=== PATIENT | male | born 1975 | race Caucasian/White ===

== ENCOUNTER → 2016-10-23 | Outpatient (CLI) | payer OTHER ==
--- NOTE | 2016-10-23 16:23 | KCIC ---
Examination: Ultrasound soft tissue neck under the chin COMPARISON: None available HISTORY: History of lump under chin, tender submental lymphadenopathy COMPARISON: None available FINDINGS: There is a complex hypoechoic region identified in the soft tissue of the chin measuring 0.8 x 0 0.6 to 1.4 cm. IMPRESSION: 1. A 1.4 cm complex hypoechoic focus identified in the soft tissue of the chin. Differential includes abnormal lymph node or complex fluid collection such as a small abscess. CT soft tissue neck with IV contrast is recommended for further evaluation. Electronically signed by: Chavo Ridley MD (10/23/2016 4:20 PM) [id number]
== END | disposition home or self-care (01) ==
LOC: KCIC US 13:59
PROVIDERS: ATTEND Physician Assistant
DX: R59.9 Enlarged lymph nodes, unspecified (principal)
CPT/HCPCS: 76536

== ENCOUNTER 2018-01-28 19:06 | Emergency (ER) | payer OTHER ==
[~2018-01-28] VITALS: Ht 185.4 cm; Wt 89.8 kg
[2018-01-28] MEDS ORDERED: MORPHINE SULFATE 4 MG/ML VIAL. IV ONE (19:30)
[2018-01-28] MEDS ORDERED: IV NORMAL SALINE 1000ML BAG 1,000 ML IV ONE (19:30)
--- NOTE | 2018-01-28 19:38 | PHYS DOC ---
Past Medical History Past Medical History: High Cholesterol Additional Past Medical Histor: aortic stenois Additional Past Surgical Histo: VALVE REPLACEMENT Alcohol Use: Occasionally Drug Use: None Adult General Chief Complaint Chief Complaint: BLOOD IN URINE HPI HPI Patient is a 42 year old male who presents to the emergency Department today with complaints of pain in his right testicle since 1300 this afternoon. He also reports blood in his urine. Patient denies any fever, back pain, abdominal pain, nausea, vomiting, dizziness, increased urinary frequency, or dysuria. He states he was lifting heavy items at work when the pain developed, he denies any known injury. He denies any swelling or bulging in his groin. Patient denies any loss of bowel or bladder control. States that he went to urgent care and was told to go the emergency room for more detailed workup. Patient reports havign his aortic heart valve replaced in August 2017 and is taking Coumadin. His INR today is 1.8 per paperwork that was sent from urgent care, pt stated he had missed 2 doses of the medication last week. Review of Systems Review of Systems Constitutional: Denies fever or chills [] GI: Denies abdominal pain, nausea, vomiting, or diarrhea [] : Denies loss of bowel/bladder control, dysuria or urinary frequency, reports hematuria and R testicle pain since 1300 Musculoskeletal: Denies back pain or joint pain [] Integument: Denies rash or skin lesions [] Neurologic: Denies headache, focal weakness or sensory changes [] All other systems were reviewed and found to be within normal limits, except as documented in this note. Current Medications Current Medications Current Medications Medications (Trade) Dose Ordered Sig/Lida Start Time Stop Time Status Last Admin Dose Admin Ceftriaxone Sodium 50 ml @ 100 mls/hr 1X ONCE 01/28/18 20:15 01/28/18 20:44 DC 01/28/18 20:18 100 MLS/HR Morphine Sulfate (Morphine Sulfate) 4 mg 1X ONCE 01/28/18 19:30 01/28/18 19:31 DC 01/28/18 19:44 4 MG Sodium Chloride 1,000 ml @ 1,000 mls/hr 1X ONCE 01/28/18 19:30 01/28/18 20:29 DC 01/28/18 19:30 1,000 MLS/HR Allergies Allergies Allergies Coded Allergies Type Severity Reaction Last Updated Verified No Known Drug Allergies 01/28/18 No Physical Exam Physical Exam Constitutional: Well developed, well nourished, no acute distress, non-toxic appearance. [] HENT: Normocephalic, atraumatic, bilateral external ears normal, nose normal. [] Eyes: conjunctiva normal, no discharge. [] Neck: Normal range of motion, no tenderness, supple, no stridor. [] Cardiovascular:Heart rate regular rhythm, valve clicking present. Lungs & Thorax: Bilateral breath sounds clear to auscultation [] Abdomen: Bowel sounds normal, soft, no tenderness, no masses, no pulsatile masses. [] : negative Phren's sign, R testicle tenderness to palpation, no scrotal edema or erythema noted, no high riding testicle when upright or supine. Skin: Warm, dry, no erythema, no rash. [] Neurologic: Alert and oriented X 3, normal motor function, normal sensory function, no focal deficits noted. [] Psychologic: Affect normal, judgement normal, mood normal. [] Current Patient Data Vital Signs Vital Signs Date Time Temp Pulse Resp B/P (MAP) Pulse Ox O2 Delivery O2 Flow Rate FiO2 01/28/18 23:00 88 18 128/69 (88) 98 Room Air 01/28/18 19:18 97.9 97.9 Lab Values Laboratory Tests Test 01/28/18 19:15 01/28/18 19:40 Urine Collection Type Unknown Urine Color Red Urine Clarity Turbid Urine pH 6.0 Urine Specific [place] 1.025 Urine Protein 100 mg/dL (NEG-TRACE) Urine Glucose (UA) Negative mg/dL (NEG) Urine Ketones (Stick) Trace mg/dL (NEG) Urine Blood Large (NEG) Urine Nitrite Positive (NEG) Urine Bilirubin Small (NEG) Urine Urobilinogen Dipstick 1.0 mg/dL (0.2 mg/dL) Urine Leukocyte Esterase Large (NEG) Urine RBC Tntc /HPF (0-2) Urine WBC >40 /HPF (0-4) Urine Squamous Epithelial Cells Few /LPF Urine Bacteria Moderate /HPF (0-FEW) White Blood Count 14.7 x10^3/uL (4.0-11.0) H Red Blood Count 4.18 x10^6/uL (4.30-5.70) L Hemoglobin 13.1 g/dL (13.0-17.5) Hematocrit 38.2 % (39.0-53.0) L Mean Corpuscular Volume 91 fL (79-100) Mean Corpuscular Hemoglobin 31 pg (25-35) Mean Corpuscular Hemoglobin Concent 34 g/dL (31-37) Red Cell Distribution Width 15.3 % (11.5-14.5) H Platelet Count 241 x10^3/uL (140-400) Neutrophils (%) (Auto) 82 % (31-73) H Lymphocytes (%) (Auto) 9 % (24-48) L Monocytes (%) (Auto) 8 % (0-9) Eosinophils (%) (Auto) 1 % (0-3) Basophils (%) (Auto) 1 % (0-3) Neutrophils # (Auto) 12.1 x10^3uL (1.8-7.7) H Lymphocytes # (Auto) 1.3 x10^3/uL (1.0-4.8) Monocytes # (Auto) 1.2 x10^3/uL (0.0-1.1) H Eosinophils # (Auto) 0.1 x10^3/uL (0.0-0.7) Basophils # (Auto) 0.1 x10^3/uL (0.0-0.2) Sodium Level 138 mmol/L (136-145) Potassium Level 3.8 mmol/L (3.5-5.1) Chloride Level 103 mmol/L (98-107) Carbon Dioxide Level 24 mmol/L (21-32) Anion Gap 11 (6-14) Blood Urea Nitrogen 19 mg/dL (8-26) Creatinine 1.1 mg/dL (0.7-1.3) Estimated GFR (Cockcroft-Gault) 73.1 BUN/Creatinine Ratio 17 (6-20) Glucose Level 107 mg/dL (70-99) H Calcium Level 9.1 mg/dL (8.5-10.1) Total Bilirubin 0.5 mg/dL (0.2-1.0) Aspartate Amino Transferase (AST) 32 U/L (15-37) Alanine Aminotransferase (ALT) 41 U/L (16-63) Alkaline Phosphatase 98 U/L (46-116) Total Protein 8.3 g/dL (6.4-8.2) H Albumin 4.3 g/dL (3.4-5.0) Albumin/Globulin Ratio 1.1 (1.0-1.7) Laboratory Tests 01/28/18 19:40 Laboratory Tests 01/28/18 19:40 EKG EKG [] Radiology/Procedures Radiology/Procedures REASON: R testicle pain since 1300 no injury PROCEDURE: TESTICULAR/SCROTUM EXAM: Scrotal sonogram with Doppler. HISTORY: Right testicular pain. Gross hematuria. COMPARISON: None. FINDINGS: Grayscale and Doppler analysis of the scrotum and contents was performed. The right testicle measures 4.2 x 3.4 x 2.6 cm. Microlithiasis is noted. There are no suspicious parenchymal lesions. A cyst in the epididymal head measures 5 x 4 mm and appears benign. Doppler flow appears normal. There is no hydrocele. The left testicle measures 4.7 x 3.2 x 2.2 cm. Microlithiasis is noted. There are no suspicious parenchymal lesions. Testicular flow appears normal. The left epididymis is mildly heterogeneous and hyperemic. IMPRESSION: 1. No cause for right-sided pain is identified. 2. Mild heterogeneity and hyperemia of the left epididymis suggests mild epididymitis. This may be chronic. Correlate clinically. 3. Testicular microlithiasis. Some sources suggest sporadic follow-up. Urologic consultation could be obtained if there is persistent concern.[] PROCEDURE: CT ABDOMEN PELVIS WO CONTRAST EXAM: CT ABDOMEN/PELVIS WITHOUT CONTRAST. HISTORY: Right groin pain, hematuria. TECHNIQUE: Computed tomography of the abdomen and pelvis was performed without intravenous contrast. COMPARISON: None. FINDINGS: Lung windows through the visualized portions of the bases reveal changes of median sternotomy and aortic valve replacement. There is mild dependent atelectasis. Bone windows reveal no suspicious lesions. There are multiple bone islands bilaterally about the hips. There is an 8 mm cyst in the right hepatic lobe. The gallbladder, spleen, pancreas, adrenal glands and kidneys are unremarkable. There are no renal or ureteral calculi. There are no pathologically enlarged lymph nodes. The left colon is decompressed, but there appears to be some wall thickening along the sigmoid portion. The appendix is not inflamed. There is no small bowel obstruction. IMPRESSION: 1. No renal or ureteral calculi. 2. The sigmoid colon is decompressed, but there appears to be mild wall thickening. Correlate for mild distal colitis. Course & Med Decision Making Course & Med Decision Making Pertinent Labs and Imaging studies reviewed. (See chart for details) DX: UTI with hematuria DDx: testicular torsion, kidney stone, pyelonephritis Pt was given 1 GM rocephin in the ER IV, 1 L of NS and 4 mg of morhine IV. He reported pain relief after pain mediation. Pt was encouraged to increase clear fluids. May take tylenol as needed for fever/pain. Follow up with urology, call in the morning for an appointment. Dr. Bledsoe's information provided. Prescription for levaquin written. Return to the ER if pain increases or symptoms worsen. PT verbalized an understanding of d/c instructions and was in agreement with POC. [] Dragon Disclaimer Dragon Disclaimer This electronic medical record was generated, in whole or in part, using a voice recognition dictation system. Departure Departure Impression: Primary Impression: UTI (urinary tract infection) Disposition: 01 HOME, SELF-CARE Condition: STABLE Referrals: NON,STAFF (PCP) Patient Instructions: Urinary Tract Infection, [id number] Additional Instructions: Fill the prescription and use as directed. Increase clear fluids. Follow up with Dr. Bledsoe, call in the morning for an appointment. Return to the ER if your symptoms worsen or pain returns. Scripts Levofloxacin (LEVAQUIN) 750 Mg Tablet 1 TAB PO DAILY, #7 TAB 0 Refills Prov: DANI MENDES APRN 01/28/18 Attending Co-Sign Attending Co-Sign The patient was not seen by me. The [facility] chart was reviewed. I agree with the plan of care. Problem Qualifiers Primary Impression: UTI (urinary tract infection) Urinary tract infection type: site unspecified Hematuria presence: with hematuria Qualified Codes: N39.0 - Urinary tract infection, site not specified ; R31.9 - Hematuria, unspecified DANI MENDES APRN Jan 28, 2018 19:38 RAO CASTRO MD Jan 31, 2018 04:47
[2018-01-28 19:57] LABS: BASO # 0.1 x10^3/uL (0.0-0.2); BASO % 1 % (0-3); EOS # 0.1 x10^3/uL (0.0-0.7); EOS % 1 % (0-3); HEMATOCRIT 38.2 % (39.0-53.0); HEMOGLOBIN 13.1 g/dL (13.0-17.5); LYMPH # 1.3 x10^3/uL (1.0-4.8); LYMPH % 9 % (24-48); MEAN CORPUSCULAR HEMOGLOBIN 31 pg (25-35); MEAN CORPUSCULAR HGB CONC 34 g/dL (31-37); MEAN CORPUSCULAR VOLUME 91 fL (79-100); MONO # 1.2 x10^3/uL (0.0-1.1); MONO % 8 % (0-9); NEUT # 12.1 x10^3uL (1.8-7.7); NEUT % 82 % (31-73); PLATELET COUNT 241 x10^3/uL (140-400); RED BLOOD COUNT 4.18 x10^6/uL (4.30-5.70); RED CELL DISTRIBUTION WIDTH 15.3 % (11.5-14.5); WHITE BLOOD COUNT 14.7 x10^3/uL (4.0-11.0)
[2018-01-28 19:58] LABS: BILIRUBIN,URINE SMALL (NEG); CLARITY,URINE TURBID; COLOR,URINE RED; NITRITE,URINE POSITIVE (NEG); PROTEIN,URINE 100 mg/dL (NEG-TRACE)
[2018-01-28 20:02] LABS: CALCIUM 9.1 mg/dL (8.5-10.1); CREATININE 1.1 mg/dL (0.7-1.3); GFR 73.1; POTASSIUM 3.8 mmol/L (3.5-5.1)
[2018-01-28 20:06] LABS: BACTERIA,URINE MODERATE /HPF (0-FEW); RBC,URINE TNTC /HPF (0-2); SQUAMOUS EPITHELIAL CELL,UR FEW /LPF; WBC,URINE >40 /HPF (0-4)
[2018-01-28 20:08] LABS: ALBUMIN 4.3 g/dL (3.4-5.0); ALBUMIN/GLOBULIN RATIO 1.1 (1.0-1.7); TOTAL BILIRUBIN 0.5 mg/dL (0.2-1.0); TOTAL PROTEIN 8.3 g/dL (6.4-8.2)
--- NOTE | 2018-01-28 21:03 | RAD ---
EXAM: Scrotal sonogram with Doppler. HISTORY: Right testicular pain. Gross hematuria. COMPARISON: None. FINDINGS: Grayscale and Doppler analysis of the scrotum and contents was performed. The right testicle measures 4.2 x 3.4 x 2.6 cm. Microlithiasis is noted. There are no suspicious parenchymal lesions. A cyst in the epididymal head measures 5 x 4 mm and appears benign. Doppler flow appears normal. There is no hydrocele. The left testicle measures 4.7 x 3.2 x 2.2 cm. Microlithiasis is noted. There are no suspicious parenchymal lesions. Testicular flow appears normal. The left epididymis is mildly heterogeneous and hyperemic. IMPRESSION: 1. No cause for right-sided pain is identified. 2. Mild heterogeneity and hyperemia of the left epididymis suggests mild epididymitis. This may be chronic. Correlate clinically. 3. Testicular microlithiasis. Some sources suggest sporadic follow-up. Urologic consultation could be obtained if there is persistent concern. Electronically signed by: Jon Chase MD (01/28/2018 9:00 PM) [facility]
--- NOTE | 2018-01-28 22:36 | RAD ---
EXAM: CT ABDOMEN/PELVIS WITHOUT CONTRAST. HISTORY: Right groin pain, hematuria. TECHNIQUE: Computed tomography of the abdomen and pelvis was performed without intravenous contrast. COMPARISON: None. FINDINGS: Lung windows through the visualized portions of the bases reveal changes of median sternotomy and aortic valve replacement. There is mild dependent atelectasis. Bone windows reveal no suspicious lesions. There are multiple bone islands bilaterally about the hips. There is an 8 mm cyst in the right hepatic lobe. The gallbladder, spleen, pancreas, adrenal glands and kidneys are unremarkable. There are no renal or ureteral calculi. There are no pathologically enlarged lymph nodes. The left colon is decompressed, but there appears to be some wall thickening along the sigmoid portion. The appendix is not inflamed. There is no small bowel obstruction. IMPRESSION: 1. No renal or ureteral calculi. 2. The sigmoid colon is decompressed, but there appears to be mild wall thickening. Correlate for mild distal colitis. *One or more of the following individualized dose reduction techniques were utilized for this examination: 1. Automated exposure control. 2. Adjustment of the mA and/or kV according to patient size. 3. Use of iterative reconstruction technique. Electronically signed by: Jon Chase MD (01/28/2018 10:33 PM) [facility]
[2018-01-28 23:00] VITALS: BP 128/69
[2018-01-28] MEDS ORDERED: LEVO750T31 PO (23:26)
== END 2018-01-28 23:45 | disposition home or self-care (01) ==
LOC: ER 19:06
DX: N39.0 Urinary tract infection, site not specified (principal); N50.811 Right testicular pain; E78.00 Pure hypercholesterolemia, unspecified; Z95.2 Presence of prosthetic heart valve
CPT/HCPCS: 36415; 74176; 76870; 80053; 81001; 85025; 87086; 96365; 96375; 99285; J0690; J2270; J7030

== ENCOUNTER 2018-01-30 00:11 | Inpatient (IN) | payer OTHER ==
[~2018-01-30] VITALS: Ht 185.4 cm; Wt 89.4 kg
[~2018-01-30 00:11] MED LIST: LEVO750T31 PO
--- NOTE | 2018-01-30 02:14 | PHYS DOC ---
Past Medical History Past Medical History: High Cholesterol Additional Past Medical Histor: aortic stenois Additional Past Surgical Histo: VALVE REPLACEMENT Alcohol Use: Occasionally Drug Use: None Adult General Chief Complaint Chief Complaint: PENIS PROBLEM HPI HPI Patient is a 42 year old male who presents with right testicular pain. Patient was initially seen yesterday evening in the emergency department around 10 PM. Reportedly patient has been having right testicular pain since 1:00 that afternoon. A [facility] workup showed a UTI that was positive for nitrites and leukocyte esterase as well as greater than 40 white blood cells and too numerous to count red blood cells. Patient had a testicular scan 01/28/2018 which showed; The right testicle measures 4.2 x 3.4 x 2.6 cm. Microlithiasis is noted. There are no suspicious parenchymal lesions. A cyst in the epididymal head measures 5 x 4 mm and appears benign. Doppler flow appears normal. There is no hydrocele. The left testicle measures 4.7 x 3.2 x 2.2 cm. Microlithiasis is noted. There are no suspicious parenchymal lesions. Testicular flow appears normal. The left epididymis is mildly heterogeneous and hyperemic. IMPRESSION: 1. No cause for right-sided pain is identified. 2. Mild heterogeneity and hyperemia of the left epididymis suggests mild epididymitis. This may be chronic. Correlate clinically. 3. Testicular microlithiasis. Some sources suggest sporadic follow-up. Urologic consultation could be obtained if there is persistent concern. Patient also had a CT scan of the abdomen and pelvis without contrast on which showed: IMPRESSION: 1. No renal or ureteral calculi. 2. The sigmoid colon is decompressed, but there appears to be mild wall thickening. Correlate for mild distal colitis. He was given 1 g of Rocephin IV in the emergency department and discharged with a Levaquin prescription patient returns approximately 24 hours later with worsening right scrotal pain as well as swelling and erythema to the right scrotal area. The left scrotal area has normal contours with no swelling and no tenderness. Review of Systems Review of Systems Constitutional: Denies fever or chills [] Eyes: Denies change in visual acuity, redness, or eye pain [] HENT: Denies nasal congestion or sore throat [] Respiratory: Denies cough or shortness of breath [] Cardiovascular: No additional information not addressed in HPI [] GI: Denies abdominal pain, nausea, vomiting, bloody stools or diarrhea [] : Positive for pain, swelling and erythema right side of the scrotum[] Musculoskeletal: Denies back pain or joint pain [] Integument: Denies rash or skin lesions [] Neurologic: Denies headache, focal weakness or sensory changes [] Endocrine: Denies polyuria or polydipsia [] All other systems were reviewed and found to be within normal limits, except as documented in this note. Current Medications Current Medications Current Medications Medications (Trade) Dose Ordered Sig/Lida Start Time Stop Time Status Last Admin Dose Admin Morphine Sulfate (Morphine Sulfate) 8 mg 1X ONCE 01/30/18 03:15 01/30/18 03:16 DC 01/30/18 03:05 8 MG Ondansetron HCl (Zofran) 4 mg 1X ONCE 01/30/18 03:15 01/30/18 03:16 DC 01/30/18 03:06 4 MG Piperacillin Sod/ Tazobactam Sod 3.375 gm/Sodium Chloride 50 ml @ 100 mls/hr 1X ONCE 01/30/18 03:30 01/30/18 03:59 UNV Sodium Chloride 1,000 ml @ 1,000 mls/hr 1X ONCE 01/30/18 03:15 01/30/18 04:14 UNV Allergies Allergies Allergies Coded Allergies Type Severity Reaction Last Updated Verified No Known Drug Allergies 01/28/18 No Physical Exam Physical Exam Constitutional: Well developed, well nourished, no acute distress, non-toxic appearance. [] HENT: Normocephalic, atraumatic, bilateral external ears normal, oropharynx moist, no oral exudates, nose normal. [] Eyes: PERRLA, EOMI, conjunctiva normal, no discharge. [] Neck: Normal range of motion, no tenderness, supple, no stridor. [] Cardiovascular:Heart rate regular rhythm, no murmur [] Lungs & Thorax: Bilateral breath sounds clear to auscultation [] Abdomen: Bowel sounds normal, soft, no tenderness, no masses, no pulsatile masses. : Swollen right scrotum with erythema and tenderness with a poorly identified testicle. Normal left testicle with no swelling and no tenderness [] Skin: Warm, dry, no erythema, no rash. [] Back: No tenderness, no CVA tenderness. [] Extremities: No tenderness, no cyanosis, no clubbing, ROM intact, no edema. [] Neurologic: Alert and oriented X 3, normal motor function, normal sensory function, no focal deficits noted. [] Psychologic: Affect normal, judgement normal, mood normal. [] Current Patient Data Vital Signs Vital Signs Date Time Temp Pulse Resp B/P (MAP) Pulse Ox O2 Delivery O2 Flow Rate FiO2 01/30/18 01:10 97.7 91 20 130/74 (92) 99 Room Air 97.7 Lab Values Laboratory Tests Test 01/30/18 02:38 White Blood Count 23.1 x10^3/uL (4.0-11.0) H Red Blood Count 4.50 x10^6/uL (4.30-5.70) Hemoglobin 13.9 g/dL (13.0-17.5) Hematocrit 40.8 % (39.0-53.0) Mean Corpuscular Volume 91 fL (79-100) Mean Corpuscular Hemoglobin 31 pg (25-35) Mean Corpuscular Hemoglobin Concent 34 g/dL (31-37) Red Cell Distribution Width 15.0 % (11.5-14.5) H Platelet Count 222 x10^3/uL (140-400) Neutrophils (%) (Auto) 84 % (31-73) H Lymphocytes (%) (Auto) 7 % (24-48) L Monocytes (%) (Auto) 9 % (0-9) Eosinophils (%) (Auto) 0 % (0-3) Basophils (%) (Auto) 0 % (0-3) Neutrophils # (Auto) 19.4 x10^3uL (1.8-7.7) H Lymphocytes # (Auto) 1.7 x10^3/uL (1.0-4.8) Monocytes # (Auto) 2.0 x10^3/uL (0.0-1.1) H Eosinophils # (Auto) 0.1 x10^3/uL (0.0-0.7) Basophils # (Auto) 0.0 x10^3/uL (0.0-0.2) Platelet Estimate Pending Prothrombin Time 23.6 SEC (11.7-14.0) H Prothrombin Time INR 2.2 (0.8-1.1) H PTT 55 SEC (24-38) H Sodium Level 138 mmol/L (136-145) Potassium Level 4.1 mmol/L (3.5-5.1) Chloride Level 102 mmol/L (98-107) Carbon Dioxide Level 24 mmol/L (21-32) Anion Gap 12 (6-14) Blood Urea Nitrogen 13 mg/dL (8-26) Creatinine 1.0 mg/dL (0.7-1.3) Estimated GFR (Cockcroft-Gault) 81.6 BUN/Creatinine Ratio 13 (6-20) Glucose Level 112 mg/dL (70-99) H Calcium Level 9.1 mg/dL (8.5-10.1) Total Bilirubin 1.0 mg/dL (0.2-1.0) Aspartate Amino Transferase (AST) 23 U/L (15-37) Alanine Aminotransferase (ALT) 28 U/L (16-63) Alkaline Phosphatase 100 U/L (46-116) Total Protein 8.1 g/dL (6.4-8.2) Albumin 3.7 g/dL (3.4-5.0) Albumin/Globulin Ratio 0.8 (1.0-1.7) L Laboratory Tests 01/30/18 02:38 Laboratory Tests 01/30/18 02:38 EKG EKG [] Radiology/Procedures Radiology/Procedures [facility] [address], [place] [id number] IMAGING REPORT Signed PATIENT: RIGOBERTO RODRÍGUEZ ACCOUNT: [id number] : 1975 LOCATION: ER AGE: 42 SEX: M EXAM STATUS: REG ER ORD. PHYSICIAN: TYLER CASANOVA MD REASON: pain/swelling PROCEDURE: TESTICULAR/SCROTUM Scrotal ultrasound: Reason for examination: Right testicular pain and swelling. The right testicle measures 4.6 x 3.2 x 2.5 cm in greatest dimension and appears homogeneous without a focal lesion and good vascular flow seen. There does appear to be microlithiasis. The right epididymis contains a 5.1 x 3.8 mm cyst in the right epididymis appears to be show increased vascular flow suggesting epididymitis. Small hydrocele is present. The left testicle measures 5.0 x 3.1 x 2.4 cm in greatest dimension and appears homogeneous with normal vascular flow. There is microlithiasis present. The left epididymis is normal in size and shows normal vascular flow. No hydrocele is seen. IMPRESSION: 5.1 mm cyst in the right epididymis. Increased vascular flow in the right epididymis consistent with epididymitis. Small right hydrocele. Microlithiasis bilaterally. Electronically signed by: Sowmya Nava MD (01/30/2018 2:16 AM) [facility] DICTATED and SIGNED BY: SOWMYA NAVA MD DATE: 01/30/18211 [] Course & Med Decision Making Course & Med Decision Making Pertinent Labs and Imaging studies reviewed. (See chart for details) Discussed with urology on-call [ Dr Johnson] who recommended Zosyn IV with admission to the hospitalist service and he would consult. [] Dragon Disclaimer Dragon Disclaimer This electronic medical record was generated, in whole or in part, using a voice recognition dictation system. Departure Departure Impression: Primary Impression: Epididymitis Additional Impression: Cellulitis of scrotum Disposition: ADMITTED INPATIENT Admitting Physician: Xie. Robles Condition: STABLE Referrals: MICKEY RUBY MD (PCP) Problem Qualifiers TYLER CASANOVA MD Jan 30, 2018 02:14
--- NOTE | 2018-01-30 02:19 | RAD ---
Scrotal ultrasound: Reason for examination: Right testicular pain and swelling. The right testicle measures 4.6 x 3.2 x 2.5 cm in greatest dimension and appears homogeneous without a focal lesion and good vascular flow seen. There does appear to be microlithiasis. The right epididymis contains a 5.1 x 3.8 mm cyst in the right epididymis appears to be show increased vascular flow suggesting epididymitis. Small hydrocele is present. The left testicle measures 5.0 x 3.1 x 2.4 cm in greatest dimension and appears homogeneous with normal vascular flow. There is microlithiasis present. The left epididymis is normal in size and shows normal vascular flow. No hydrocele is seen. IMPRESSION: 5.1 mm cyst in the right epididymis. Increased vascular flow in the right epididymis consistent with epididymitis. Small right hydrocele. Microlithiasis bilaterally. Electronically signed by: Sowmya Rice MD (01/30/2018 2:16 AM) [facility]
[2018-01-30] MEDS ORDERED: IV NORMAL SALINE 1000ML BAG 1,000 ML IV ONE ×2 (02:30→04:00)
[2018-01-30 02:48] LABS: BASO % 0 % (0-3); EOS # 0.1 x10^3/uL (0.0-0.7); EOS % 0 % (0-3); HEMATOCRIT 40.8 % (39.0-53.0); HEMOGLOBIN 13.9 g/dL (13.0-17.5); LYMPH # 1.7 x10^3/uL (1.0-4.8); LYMPH % 7 % (24-48); MEAN CORPUSCULAR HEMOGLOBIN 31 pg (25-35); MEAN CORPUSCULAR HGB CONC 34 g/dL (31-37); MEAN CORPUSCULAR VOLUME 91 fL (79-100); MONO % 9 % (0-9); NEUT # 19.4 x10^3uL (1.8-7.7); NEUT % 84 % (31-73); PLATELET COUNT 222 x10^3/uL (140-400); WHITE BLOOD COUNT 23.1 x10^3/uL (4.0-11.0)
[2018-01-30 03:06] LABS: CALCIUM 9.1 mg/dL (8.5-10.1); GFR 81.6; POTASSIUM 4.1 mmol/L (3.5-5.1)
[2018-01-30 03:08] LABS: PROTHROMBIN TIME PATIENT 23.6 SEC (11.7-14.0)
[2018-01-30 03:12] LABS: ALBUMIN 3.7 g/dL (3.4-5.0); ALBUMIN/GLOBULIN RATIO 0.8 (1.0-1.7); TOTAL PROTEIN 8.1 g/dL (6.4-8.2)
[2018-01-30] MEDS ORDERED: MORPHINE SULFATE 4 MG/ML VIAL. IV ONE (03:15)
[2018-01-30] MEDS ORDERED: ONDANSETRON PF 4 MG/2 ML VIAL. IV ONE (03:15)
[2018-01-30 03:31] LABS: BILIRUBIN,URINE SMALL (NEG); CLARITY,URINE CLEAR; COLOR,URINE AMBER; NITRITE,URINE NEGATIVE (NEG); PH,URINE 5.5; PROTEIN,URINE 30 mg/dL (NEG-TRACE)
[2018-01-30 03:35] LABS: % ATYL 1 % (0-0); % BANDS 1 % (0-9); % BASOS 1 % (0-3); % LYMPHS 5 % (24-48); % MONOS 5 % (0-10); % SEGS 87 % (35-66)
[2018-01-30 03:36] LABS: PLT ESTIMATE ADEQUATE (ADEQUATE)
[2018-01-30 03:46] LABS: BACTERIA,URINE 0 /HPF (0-FEW); SQUAMOUS EPITHELIAL CELL,UR OCC /LPF; WBC,URINE >40 /HPF (0-4)
[2018-01-30] MEDS ORDERED: PIPERACILLIN/TAZOBACTAM 3.375 GM in IV NORMAL SALINE 50ML 50 ML IV ONE (04:00)
[2018-01-30] MEDS ORDERED: MORPHINE SULFATE 4 MG/ML VIAL. IV PRN ×3 (05:45→06:30)
[2018-01-30] MEDS ORDERED: ONDANSETRON PF 4 MG/2 ML VIAL. IV PRN ×2 (05:45→06:30)
[2018-01-30 06:00] VITALS: BP 118/62
[2018-01-30] MEDS ORDERED: MORPHINE SULFATE 2 MG/ML VIAL. IV PRN (06:30)
[2018-01-30] MEDS ORDERED: IV NORMAL SALINE 1000ML BAG 1,000 ML IV SCH (06:30)
[2018-01-30] MEDS ORDERED: WARF-31 PO (07:40)
[2018-01-30] MEDS ORDERED: NICOTINE 21MG PATCH. TD PRN (09:15)
[2018-01-30 10:42] VITALS: BP 121/69
[2018-01-30] MEDS ORDERED: ACETAMINOPHEN 325 MG TABLET. PO PRN (11:15)
--- NOTE | 2018-01-30 11:59 | PDOC2 ---
UROLOGY CONSULT Date of Admission DATE: 01/30/18 TIME: 11:54 Reason for Consult: right orchitis Chief Complaint right orchalgia Source: Patient right testes swelling x 2 days, nausea, low grade fever. 23k leucocytosis US with right EO. AF VSSN so far. ROS ROS: RESPIRATORY: Shortness of breath denies. Cough denies. UROLOGY: Denies blood in urine. Denies difficulty urinating Current Medications Current Medications Sodium Chloride 1,000 ml @ 125 mls/hr 1X ONCE IV Last administered on at 02:38; Start 01/30/18 at 02:30; Stop 01/30/18 at 10:29; Status DC Morphine Sulfate (Morphine Sulfate) 8 mg 1X ONCE IV Last administered on 01/30at 03:05; Start 01/30/18 at 03:15; Stop 01/30/18 at 03:16; Status DC Ondansetron HCl (Zofran) 4 mg 1X ONCE IV Last administered on 01/30/18at 03:06 ; Start 01/30/18 at 03:15; Stop 01/30/18 at 03:16; Status DC Sodium Chloride 1,000 ml @ 1,000 mls/hr 1X ONCE IV ; Start 01/30/18 at 04:00 ; Stop 01/30/18 at 04:59; Status DC Piperacillin Sod/ Tazobactam Sod 3.375 gm/Sodium Chloride 50 ml @ 100 mls/hr 1X ONCE IV Last administered on 01/30/18at 04:21; Start 01/30/18 at 04:00; Stop 01/30/18 at 04:29; Status DC Ondansetron HCl (Zofran) 4 mg PRN Q8HRS PRN IV NAUSEA/VOMITING 1ST CHOICE; Start 01/30/18 at 05:45; Stop 01/30/18 at 06:35; Status DC Morphine Sulfate (Morphine Sulfate) 4 mg PRN Q2HR PRN IV SEVERE PAIN; Start at 05:45; Stop 01/30/18 at 11:16; Status DC Piperacillin Sod/ Tazobactam Sod 3.375 gm/Sodium Chloride 50 ml @ 100 mls/hr Q6HRS IV Last administered on 01/30/18at 11:48; Start 01/30/18 at 12:00 Ondansetron HCl (Zofran) 4 mg PRN Q4HRS PRN IV NAUSEA/VOMITING 1ST CHOICE; Start 01/30/18 at 06:30 Morphine Sulfate (Morphine Sulfate) 4 mg PRN Q2HR PRN IV MODERATE PAIN; Start 01/30/18 at 06:30 Morphine Sulfate (Morphine Sulfate) 6 mg PRN Q2HR PRN IV SEVERE PAIN, 1ST CHOICE; Start 01/30/18 at 06:30 Morphine Sulfate (Morphine Sulfate) 8 mg PRN Q4HRS PRN IV SEVERE PAIN, 2ND CHOICE; Start 01/30/18 at 06:30 Sodium Chloride 1,000 ml @ 75 mls/hr [id number] IV Last administered on at 07:06; Start 01/30/18 at 06:30 Nicotine (Nicoderm Cq 21mg) 1 patch PRN DAILY PRN TD SMOKING CESSATION; Start 01/30/18 at 09:15 Piperacillin Sod/ Tazobactam Sod 3.375 gm/Sodium Chloride 50 ml @ 100 mls/hr Q6HRS IV ; Start 01/30/18 at 12:00; Stop 01/30/18 at 12:00; Status DC Atorvastatin Calcium (Lipitor) 20 mg QHS PO ; Start 01/30/18 at 21:00 Non-Formulary Medication (Warfarin Sodium ) 11 mg DAILY PO ; Start 01/31/18 at 09:00; Status UNV Acetaminophen (Tylenol) 325 mg PRN Q6HRS PRN PO MILD PAIN / TEMP Last administered on 01/30/18at 11:48; Start 01/30/18 at 11:15 Warfarin Sodium (Coumadin Per Pharmacy) 1 each PRN DAILY PRN MC SEE COMMENTS; Start 01/30/18 at 11:30 Active Scripts Active Levaquin (Levofloxacin) 750 Mg Tablet 1 Tab PO DAILY Reported Warfarin Sodium 5 Mg Tablet 11 Mg PO DAILY Allergies: Coded Allergies: No Known Drug Allergies (Unverified , 01/28/18) Physical Examination PHYSICAL EXAMINATION: GENERAL: Gen. appearance: No acute distress. Mood/affect: Pleasant. HEENT: Head: Normocephalic, atraumatic. Airway Impairment: No. CHEST: Shape and expansion: Normal. Expansion: Normal. SKIN: General: Warm. Color: Good. GENITOURINARY:right scotal erythema, calor, dolor, indurated, testes enlarged. NEUROLOGICAL: Mental status: Alert and oriented 3. Language: Normal. VITALS Vital Signs Date Time Temp Pulse Resp B/P (MAP) Pulse Ox O2 Delivery O2 Flow Rate FiO2 01/30/18 10:42 101.1 78 20 121/69 (86) 95 Room Air 101.1 Labs Laboratory Tests Test 01/30/18 02:38 01/30/18 03:20 White Blood Count 23.1 x10^3/uL (4.0-11.0) Red Blood Count 4.50 x10^6/uL (4.30-5.70) Hemoglobin 13.9 g/dL (13.0-17.5) Hematocrit 40.8 % (39.0-53.0) Mean Corpuscular Volume 91 fL (79-100) Mean Corpuscular Hemoglobin 31 pg (25-35) Mean Corpuscular Hemoglobin Concent 34 g/dL (31-37) Red Cell Distribution Width 15.0 % (11.5-14.5) Platelet Count 222 x10^3/uL (140-400) Neutrophils (%) (Auto) 84 % (31-73) Lymphocytes (%) (Auto) 7 % (24-48) Monocytes (%) (Auto) 9 % (0-9) Eosinophils (%) (Auto) 0 % (0-3) Basophils (%) (Auto) 0 % (0-3) Neutrophils # (Auto) 19.4 x10^3uL (1.8-7.7) Lymphocytes # (Auto) 1.7 x10^3/uL (1.0-4.8) Monocytes # (Auto) 2.0 x10^3/uL (0.0-1.1) Eosinophils # (Auto) 0.1 x10^3/uL (0.0-0.7) Basophils # (Auto) 0.0 x10^3/uL (0.0-0.2) Segmented Neutrophils % 87 % (35-66) Band Neutrophils % 1 % (0-9) Lymphocytes % 5 % (24-48) Atypical Lymphocytes % (Manual) 1 % (0-0) Monocytes % 5 % (0-10) Basophils % 1 % (0-3) Platelet Estimate Adequate (ADEQUATE) Giant Platelets Occ Prothrombin Time 23.6 SEC (11.7-14.0) Prothromb Time International Ratio 2.2 (0.8-1.1) Activated Partial Thromboplast Time 55 SEC (24-38) Sodium Level 138 mmol/L (136-145) Potassium Level 4.1 mmol/L (3.5-5.1) Chloride Level 102 mmol/L (98-107) Carbon Dioxide Level 24 mmol/L (21-32) Anion Gap 12 (6-14) Blood Urea Nitrogen 13 mg/dL (8-26) Creatinine 1.0 mg/dL (0.7-1.3) Estimated GFR (Cockcroft-Gault) 81.6 BUN/Creatinine Ratio 13 (6-20) Glucose Level 112 mg/dL (70-99) Calcium Level 9.1 mg/dL (8.5-10.1) Total Bilirubin 1.0 mg/dL (0.2-1.0) Aspartate Amino Transf (AST/SGOT) 23 U/L (15-37) Alanine Aminotransferase (ALT/SGPT) 28 U/L (16-63) Alkaline Phosphatase 100 U/L (46-116) Total Protein 8.1 g/dL (6.4-8.2) Albumin 3.7 g/dL (3.4-5.0) Albumin/Globulin Ratio 0.8 (1.0-1.7) Urine Collection Type Unknown Urine Color Gissel Urine Clarity Clear Urine pH 5.5 Urine Specific [place] 1.025 Urine Protein 30 mg/dL (NEG-TRACE) Urine Glucose (UA) Negative mg/dL (NEG) Urine Ketones (Stick) 15 mg/dL (NEG) Urine Blood Large (NEG) Urine Nitrite Negative (NEG) Urine Bilirubin Small (NEG) Urine Urobilinogen Dipstick 2.0 mg/dL (0.2 mg/dL) Urine Leukocyte Esterase Small (NEG) Urine RBC 11-20 /HPF (0-2) Urine WBC >40 /HPF (0-4) Urine Squamous Epithelial Cells Occ /LPF Urine Bacteria 0 /HPF (0-FEW) Urine Mucus Marked /LPF Laboratory Tests Test 01/30/18 02:38 01/30/18 03:20 White Blood Count 23.1 x10^3/uL (4.0-11.0) Red Blood Count 4.50 x10^6/uL (4.30-5.70) Hemoglobin 13.9 g/dL (13.0-17.5) Hematocrit 40.8 % (39.0-53.0) Mean Corpuscular Volume 91 fL (79-100) Mean Corpuscular Hemoglobin 31 pg (25-35) Mean Corpuscular Hemoglobin Concent 34 g/dL (31-37) Red Cell Distribution Width 15.0 % (11.5-14.5) Platelet Count 222 x10^3/uL (140-400) Neutrophils (%) (Auto) 84 % (31-73) Lymphocytes (%) (Auto) 7 % (24-48) Monocytes (%) (Auto) 9 % (0-9) Eosinophils (%) (Auto) 0 % (0-3) Basophils (%) (Auto) 0 % (0-3) Neutrophils # (Auto) 19.4 x10^3uL (1.8-7.7) Lymphocytes # (Auto) 1.7 x10^3/uL (1.0-4.8) Monocytes # (Auto) 2.0 x10^3/uL (0.0-1.1) Eosinophils # (Auto) 0.1 x10^3/uL (0.0-0.7) Basophils # (Auto) 0.0 x10^3/uL (0.0-0.2) Segmented Neutrophils % 87 % (35-66) Band Neutrophils % 1 % (0-9) Lymphocytes % 5 % (24-48) Atypical Lymphocytes % (Manual) 1 % (0-0) Monocytes % 5 % (0-10) Basophils % 1 % (0-3) Platelet Estimate Adequate (ADEQUATE) Giant Platelets Occ Prothrombin Time 23.6 SEC (11.7-14.0) Prothromb Time International Ratio 2.2 (0.8-1.1) Activated Partial Thromboplast Time 55 SEC (24-38) Sodium Level 138 mmol/L (136-145) Potassium Level 4.1 mmol/L (3.5-5.1) Chloride Level 102 mmol/L (98-107) Carbon Dioxide Level 24 mmol/L (21-32) Anion Gap 12 (6-14) Blood Urea Nitrogen 13 mg/dL (8-26) Creatinine 1.0 mg/dL (0.7-1.3) Estimated GFR (Cockcroft-Gault) 81.6 BUN/Creatinine Ratio 13 (6-20) Glucose Level 112 mg/dL (70-99) Calcium Level 9.1 mg/dL (8.5-10.1) Total Bilirubin 1.0 mg/dL (0.2-1.0) Aspartate Amino Transf (AST/SGOT) 23 U/L (15-37) Alanine Aminotransferase (ALT/SGPT) 28 U/L (16-63) Alkaline Phosphatase 100 U/L (46-116) Total Protein 8.1 g/dL (6.4-8.2) Albumin 3.7 g/dL (3.4-5.0) Albumin/Globulin Ratio 0.8 (1.0-1.7) Urine Collection Type Unknown Urine Color Gissel Urine Clarity Clear Urine pH 5.5 Urine Specific [place] 1.025 Urine Protein 30 mg/dL (NEG-TRACE) Urine Glucose (UA) Negative mg/dL (NEG) Urine Ketones (Stick) 15 mg/dL (NEG) Urine Blood Large (NEG) Urine Nitrite Negative (NEG) Urine Bilirubin Small (NEG) Urine Urobilinogen Dipstick 2.0 mg/dL (0.2 mg/dL) Urine Leukocyte Esterase Small (NEG) Urine RBC 11-20 /HPF (0-2) Urine WBC >40 /HPF (0-4) Urine Squamous Epithelial Cells Occ /LPF Urine Bacteria 0 /HPF (0-FEW) Urine Mucus Marked /LPF Assessment/Plan right EO. leucocytosis. Agree w broad spectrum abx. recommend scrotal elevation, NSAIDS, ICE. FU w interval exam. JOSUE RANGEL MD Jan 30, 2018 11:59
[2018-01-30] MEDS ORDERED: PIPERACILLIN/TAZOBACTAM 3.375 GM in IV NORMAL SALINE 50ML 50 ML IV SCH ×2 (12:00)
--- NOTE | 2018-01-30 12:09 | HP ---
ADMIT DATE: 01/30/2018 CHIEF COMPLAINT: Scrotal pain. HISTORY OF PRESENT ILLNESS: The patient is a pleasant 42-year-old male who has a history of heart valve and he is on anticoagulation. He has developed scrotal pain, had epididymitis and a testicular cyst. He was given some IV antibiotics and sent home from the ER couple of days ago, but he states that he only took 1 pill and the swelling got worse. Now the patient has been admitted. We are consulting Infectious Disease and Urology. PAST MEDICAL HISTORY: Chronic anticoagulation, cardiac valve, hyperlipidemia. ALLERGIES: None. FAMILY HISTORY: Hypertension. SOCIAL HISTORY: He smokes heavily. He works in construction. He has a girlfriend. He does not drink or take drugs. MEDICATIONS: Reviewed, please refer to the MRAD. REVIEW OF SYSTEMS: GENERAL: No history of weight change, weakness or fevers. SKIN: No bruising, hair changes or rashes. EYES: No blurred, double or loss of vision. NOSE AND THROAT: No history of nosebleeds, hoarseness or sore throat. HEART: No history of palpitations, chest pain or shortness of breath on exertion. LUNGS: Denies cough, hemoptysis, wheezing or shortness of breath. GASTROINTESTINAL: Denies changes in appetite, nausea, vomiting, diarrhea or constipation. GENITOURINARY: He complains of scrotal pain and scrotal swelling. NEUROLOGIC: Denies history of numbness, tingling, tremor or weakness. PSYCHIATRIC: No history of panic, anxiety or depression. ENDOCRINE: No history of heat or cold intolerance, polyuria or polydipsia. EXTREMITIES: Denies muscle weakness, joint pain, pain on walking or stiffness. PHYSICAL EXAMINATION: VITAL SIGNS: Temperature 101, pulse 100, respirations 18, blood pressure 140/101. GENERAL: He is alert, cooperative, very anxious, seems to be having some nicotine withdrawal. I offered him a nicotine patch. He really does not want it. HEART: Normal S1, S2. LUNGS: Clear. ABDOMEN: Soft. EXTREMITIES: No edema. SKIN: No rash. ENDOCRINE: No thyromegaly. LYMPHATICS: No cervical nodes. HEMATOPOIETIC: No bruising. GENITOURINARY: He has got a large scrotal swelling with erythema, greater on the right than the left. ASSESSMENT AND PLAN: Epididymitis and testicular cyst. The patient is being admitted. We will consult Infectious Disease and Urology. IV Zosyn, p.r.n. Tylenol. Home meds. Frequent labs. PROGNOSIS: Guarded. DENA GOOD DO DR: JANI/jose JOB#: [id number] / [id number]
[2018-01-30] MEDS ORDERED: LACTOBACILLUS RHAMNOSUS GG 1 CAPSULE. PO SCH (15:00)
[2018-01-30 15:09] VITALS: BP 125/64
[2018-01-30] MEDS ORDERED: WARFARIN 6 MG TABLET. PO SCH (16:00)
[2018-01-30] MEDS ORDERED: WARFARIN 5 MG TABLET. PO SCH (16:00)
[2018-01-30] MEDS ORDERED: ATORVASTATIN CALCIUM 20 MG TABLET PO SCH (21:00)
[2018-01-31] MEDS ORDERED: WARFARIN SODIUM PO SCH (09:00)
== END 2018-01-30 16:10 | disposition left against medical advice (07) | DRG 728 ==
LOC: ER 00:11 → 5 SOUTH 03:24
PROVIDERS: ADMIT Internal Medicine; ATTEND Internal Medicine
DX: N45.3 Epididymo-orchitis (principal); N44.2 Benign cyst of testis; E78.5 Hyperlipidemia, unspecified; E78.00 Pure hypercholesterolemia, unspecified; F17.200 Nicotine dependence, unspecified, uncomplicated; Z53.21 Procedure and treatment not carried out due to patient leaving prior to being seen by health care provider; Z95.2 Presence of prosthetic heart valve; Z79.01 Long term (current) use of anticoagulants; Z82.49 Family history of ischemic heart disease and other diseases of the circulatory system
CPT/HCPCS: 36415; 76870; 80053; 81001; 85007; 85025; 85610; 85730; 96361; 96365; J2270; J2405; J2543; J7030; 99285-25